=== PATIENT | female | born 1995 | race African-American/Black ===

== ENCOUNTER 2019-06-16 20:17 | Emergency (ER) | payer MEDICAID ==
[~2019-06-16] VITALS: Ht 170.2 cm; Wt 185.0 kg
[2019-06-16 21:10] VITALS: BP 161/98
[2019-06-16] MEDS ORDERED: KETOROLAC 60MG/2ML VIAL IM ONE (23:00)
== END 2019-06-16 23:27 | disposition home or self-care (01) ==
LOC: ER 20:17
DX: S70.02XA Contusion of left hip, initial encounter (principal); W18.39XA Other fall on same level, initial encounter; Y93.89 Activity, other specified; Y92.89 Other specified places as the place of occurrence of the external cause; Y99.8 Other external cause status; J45.909 Unspecified asthma, uncomplicated; I10 Essential (primary) hypertension; G89.29 Other chronic pain
CPT/HCPCS: 81025; 96372; 99283; J1885

== ENCOUNTER 2019-07-27 18:55 | Emergency (ER) | payer MEDICAID ==
[~2019-07-27] VITALS: Ht 170.2 cm; Wt 165.0 kg
[2019-07-27] MEDS ORDERED: HYDROCODONE/ACETAMINOPHEN 5/325MG TABLET PO ONE (22:30)
[2019-07-28 01:36] VITALS: BP 146/82
== END 2019-07-28 01:37 | disposition home or self-care (01) ==
LOC: ER 18:55
DX: M25.552 Pain in left hip (principal); J45.909 Unspecified asthma, uncomplicated; I10 Essential (primary) hypertension
CPT/HCPCS: 72170; 81025; 99283